=== PATIENT | female | born 1980 | race Caucasian/White ===

== ENCOUNTER 2020-06-09 10:56 | Outpatient (CLI) | payer BC ==
[2020-06-09 15:11] LABS: BASOPHILS # (AUTO) 0.1 10^3/uL (0.0-0.1); EOSINOPHILS # (AUTO) 0.1 10^3/uL (0.0-0.7); EOSINOPHILS % (AUTO) 1.8 %; HGB - HEMOGLOBIN 13.7 g/dL (12.0-16.0); LYMPHOCYTES # (AUTO) 2.7 10^3/uL (1.5-3.5); LYMPHOCYTES % (AUTO) 39.3 %; MEAN CORPUSCULAR HEMOGLOBIN 29.4 pg (27.0-31.0); MEAN CORPUSCULAR HGB CONC 31.4 g/dL (32.0-36.0); MEAN CORPUSCULAR VOLUME 93.8 fL (81.0-99.0); MEAN PLATELET VOLUME 10.7 fL (7.9-10.8); MONOCYTES # (AUTO) 0.5 10^3/uL (0.0-1.0); MONOCYTES % (AUTO) 7.4 %; NEUTROPHILS # (AUTO) 3.4 10^3/uL (1.5-6.6); NEUTROPHILS % (AUTO) 50.2 %; PLT - PLATELET COUNT 300 10^3/uL (130-450); RED BLOOD COUNT 4.66 10^6/uL (4.20-5.40); RED CELL DISTRIBUTION WIDTH 12.4 % (12.0-15.0); WHITE BLOOD COUNT 6.8 x10^3/uL (4.8-10.8)
[2020-06-09 15:26] LABS: ALBUMIN 4.1 g/dL (3.2-5.5); ALBUMIN/GLOBULIN RATIO 1.2 (1.0-2.2); BILIRUBIN,TOTAL 0.7 mg/dL (0.2-1.0); CALCIUM 9.6 mg/dL (8.5-10.3); CREATININE 0.8 mg/dL (0.4-1.0); TOTAL PROTEIN 7.4 g/dL (6.7-8.2)
== END 2020-06-09 10:57 | disposition home or self-care (01) ==
LOC: LAB.S 10:56
PROVIDERS: ATTEND Registered Nurse
DX: E03.9 Hypothyroidism, unspecified (principal)
CPT/HCPCS: 36415; 80053; 84443; 85025

== ENCOUNTER 2021-05-27 15:19 | Outpatient (CLI) | payer BC ==
--- NOTE | 2021-05-27 16:36 | Ultrasound Report ---
PROCEDURE: Pelvic w/Transvaginal INDICATIONS: IRREGULAR MENSES TECHNIQUE: Real-time scanning was performed of the pelvic organs, with image documentation. Additional endovagi nal scanning was necessary due to incomplete visualization of the adnexal and endometrial structures by transabdominal scanning. COMPARISON: None. FINDINGS: No pathologic free abdominal or pelvic fluid. Uterus: Uterus is normal in size at 8.4 x 4.8 x 5 point cm. The endometrium measures 7 mm in combin ed thickness. Multiple fibroids are seen. A right posterior subserosal fibroid measures 1.7 x 1.0 x 1.3 cm. A right posterior subserosal fibroid measures 0.8 x 0.5 x 0.6 cm. Uterine echotexture is hete rogenous consistent with adenomyosis. A left anterior subserosal fibroid measures 1.5 x 1.3 x 0.8 cm. A left anterior and lateral pedunculated fibroid measures 1.8 x 1.4 x 2.0 cm. Ovaries: The right ovary measures 3.9 x 2.4 x 3.4 cm. The left ovary measures 2.7 x 1.5 x 2.9 cm. IMPRESSION: 1. Adenomyosis and fibroid uterus 2. No acute abnormality. Reviewed by: Ethan Lynn on 05/27/2021 4:35 PM PDT Approved by: Ethan Lynn on 05/27/2021 4:35 PM PDT Station ID: [id number]
== END 2021-05-27 15:20 | disposition home or self-care (01) ==
LOC: DI 15:19
PROVIDERS: ATTEND Obstetrics & Gynecology
DX: N92.6 Irregular menstruation, unspecified (principal); N80.0 Endometriosis of uterus; D25.2 Subserosal leiomyoma of uterus

== ENCOUNTER 2021-06-09 09:33 | Outpatient (CLI) | payer BC ==
[2021-06-09 15:29] LABS: CHOL/HDL RATIO 3.6 (<4.4); CHOLESTEROL 160 mg/dL; HDL CHOLESTEROL 44 mg/dL; LDL CHOLESTEROL,CALCULATED 102 mg/dL; LDL/HDL RATIO 2.3 (<4.4); TRIGLYCERIDES 68 mg/dL; VLDL CHOLESTEROL 14 mg/dL
[2021-06-09 15:42] LABS: THYROID STIMULATING HORMONE 0.14 uIU/mL (0.34-5.60)
[2021-06-09 15:44] LABS: FREE T4 (FREE THYROXINE) 1.05 ng/dL (0.58-1.64)
[2021-06-09 15:48] LABS: PROLACTIN 8.16 ng/mL
[2021-06-09 16:09] LABS: FOLLICLE STIMULATING HORMONE 6.92 mIU/mL
[2021-06-09 19:59] LABS: ESTIMATED AVERAGE GLUCOSE 105 mg/dL (70-100); HEMOGLOBIN A1c% 5.3 % (4.27-6.07)
== END 2021-06-09 09:34 | disposition home or self-care (01) ==
LOC: LAB.S 09:33
PROVIDERS: ATTEND Obstetrics & Gynecology
DX: E03.9 Hypothyroidism, unspecified (principal); N92.6 Irregular menstruation, unspecified; Z13.220 Encounter for screening for lipoid disorders; Z13.21 Encounter for screening for nutritional disorder; Z13.1 Encounter for screening for diabetes mellitus; E28.2 Polycystic ovarian syndrome
CPT/HCPCS: 36415; 80061; 81599; 82306; 82670; 83001; 83036; 83498; 83520; 83721; 84146; 84403; 84439; 84443; 86762; 86787

== ENCOUNTER 2021-09-10 10:10 | Outpatient (CLI) | payer BC ==
[2021-09-10 19:09] LABS: BILIRUBIN,URINE NEGATIVE (NEGATIVE); GLUCOSE, URINE (UA) NEGATIVE (NEGATIVE); KETONES,URINE (UA) NEGATIVE (NEGATIVE); LEUKOCYTE ESTERASE, URINE NEGATIVE (NEGATIVE); NITRITE,URINE NEGATIVE (NEGATIVE); OCCULT BLOOD,URINE NEGATIVE (NEGATIVE); PROTEIN,URINE NEGATIVE (NEGATIVE); UROBILINOGEN,URINE 0.2 (NORMAL) E.U./dL (NORMAL)
[2021-09-10 19:23] LABS: BACTERIA,URINE Rare /HPF (None Seen); CLARITY,URINE CLEAR (CLEAR); RBC,URINE None Seen /HPF (0-5); SQUAMOUS EPITHELIAL CELL,UR RARE Squamous (<= Few)
== END 2021-09-10 23:59 | disposition home or self-care (01) ==
LOC: LAB.WC 10:10
PROVIDERS: ATTEND Obstetrics & Gynecology
DX: Z34.00 Encounter for supervision of normal first pregnancy, unspecified trimester (principal)
CPT/HCPCS: 81001; 87086

== ENCOUNTER 2021-10-04 12:57 | Outpatient (CLI) | payer BC ==
[2021-10-04 20:35] LABS: BASOPHILS # (AUTO) 0.1 10^3/uL (0.0-0.1); BASOPHILS % (AUTO) 0.6 %; EOSINOPHILS # (AUTO) 0.2 10^3/uL (0.0-0.7); EOSINOPHILS % (AUTO) 1.6 %; HCT - HEMATOCRIT 38.6 % (37.0-47.0); HGB - HEMOGLOBIN 12.8 g/dL (12.0-16.0); LYMPHOCYTES # (AUTO) 2.3 10^3/uL (1.5-3.5); LYMPHOCYTES % (AUTO) 19.9 %; MEAN CORPUSCULAR HEMOGLOBIN 30.8 pg (27.0-31.0); MEAN CORPUSCULAR HGB CONC 33.2 g/dL (32.0-36.0); MEAN PLATELET VOLUME 11.4 fL (7.9-10.8); MONOCYTES # (AUTO) 0.6 10^3/uL (0.0-1.0); MONOCYTES % (AUTO) 5.5 %; NEUTROPHILS # (AUTO) 8.3 10^3/uL (1.5-6.6); NEUTROPHILS % (AUTO) 71.9 %; PLT - PLATELET COUNT 305 10^3/uL (130-450); RED BLOOD COUNT 4.15 10^6/uL (4.20-5.40); RED CELL DISTRIBUTION WIDTH 13.3 % (12.0-15.0); WHITE BLOOD COUNT 11.5 x10^3/uL (4.8-10.8)
[2021-10-06 09:51] LABS: HEPATITIS C ANTIBODY NON-REACTIVE (NON-REACTIVE)
[2021-10-06 12:51] LABS: HEPATITIS B SURFACE ANTIGEN NON-REACTIVE (NON-REACTIVE)
[2021-10-06 15:20] LABS: HIV AG/AB 4TH GEN NON-REACTIVE (NON-REACTIVE)
== END 2021-10-04 12:58 | disposition home or self-care (01) ==
LOC: LAB.S 12:57
PROVIDERS: ATTEND Obstetrics & Gynecology
DX: Z36.89 Encounter for other specified antenatal screening (principal)
CPT/HCPCS: 36415; 85025; 86592; 86762; 86787; 86803; 86850; 86900; 86901; 87340; 87389

== ENCOUNTER 2021-10-06 08:00 | Outpatient (CLI) | payer BC ==
[2021-10-06 20:54] LABS: CHLAMYDIA TRACHOMATIS DNA NEGATIVE (NEGATIVE); NEISSERIA GONORRHOEAE DNA NEGATIVE (NEGATIVE); TRICHOMONAS VAGINALIS DNA NEGATIVE (NEGATIVE)
== END 2021-10-06 23:59 ==
LOC: LAB 08:00
PROVIDERS: ATTEND Nurse Practitioner Obstetrics & Gynecology
DX: Z11.3 Encounter for screening for infections with a predominantly sexual mode of transmission (principal)
CPT/HCPCS: 87491; 87591; 87661

== ENCOUNTER 2021-10-19 10:19 | Outpatient (CLI) | payer BC | END 2021-10-19 10:20 | disposition home or self-care (01) | LOC: LAB 10:19 | PROVIDERS: ATTEND Obstetrics & Gynecology | DX: O09.519 Supervision of elderly primigravida, unspecified trimester (principal) | CPT/HCPCS: 36415 ==

== ENCOUNTER 2021-11-03 09:18 | Outpatient (CLI) | payer BC ==
[2021-11-03 09:44] LABS: HCT - HEMATOCRIT 37.3 % (37.0-47.0); HGB - HEMOGLOBIN 12.6 g/dL (12.0-16.0); MEAN CORPUSCULAR HEMOGLOBIN 31.3 pg (27.0-31.0); MEAN CORPUSCULAR HGB CONC 33.8 g/dL (32.0-36.0); MEAN CORPUSCULAR VOLUME 92.8 fL (81.0-99.0); MEAN PLATELET VOLUME 9.9 fL (7.9-10.8); RED BLOOD COUNT 4.02 10^6/uL (4.20-5.40); RED CELL DISTRIBUTION WIDTH 13.8 % (12.0-15.0); WHITE BLOOD COUNT 11.8 x10^3/uL (4.8-10.8)
[2021-11-03 10:03] LABS: % IRON SATURATION 19 % (20-50); IRON 89 ug/dL (28-170); TOTAL IRON BINDING CAPACITY 458 ug/dL (250-450); TRANSFERRIN 327 mg/dL (192-382)
[2021-11-03 10:09] LABS: THYROID STIMULATING HORMONE 16.23 uIU/mL (0.34-5.60)
[2021-11-03 10:15] LABS: FERRITIN 41.8 ng/mL (11.0-306.8)
[2021-11-03 10:40] LABS: FREE T4 (FREE THYROXINE) 0.63 ng/dL (0.58-1.64)
== END 2021-11-03 09:19 | disposition home or self-care (01) ==
LOC: LAB 09:18
PROVIDERS: ATTEND Obstetrics & Gynecology
DX: O09.519 Supervision of elderly primigravida, unspecified trimester (principal); O99.891 Other specified diseases and conditions complicating pregnancy; R53.83 Other fatigue; O99.280 Endocrine, nutritional and metabolic diseases complicating pregnancy, unspecified trimester; E03.9 Hypothyroidism, unspecified
CPT/HCPCS: 36415; 81599; 82105; 82728; 83540; 84439; 84443; 84466; 85027

== ENCOUNTER 2021-11-19 13:35 | Outpatient (CLI) | payer BC ==
[2021-11-19 20:32] LABS: THYROID STIMULATING HORMONE 6.05 uIU/mL (0.34-5.60)
[2021-11-19 21:22] LABS: FREE T4 (FREE THYROXINE) 0.62 ng/dL (0.58-1.64)
== END 2021-11-19 13:36 | disposition home or self-care (01) ==
LOC: LAB.S 13:35
PROVIDERS: ATTEND Obstetrics & Gynecology
DX: O09.519 Supervision of elderly primigravida, unspecified trimester (principal); O99.891 Other specified diseases and conditions complicating pregnancy; R53.83 Other fatigue; O99.280 Endocrine, nutritional and metabolic diseases complicating pregnancy, unspecified trimester; E03.9 Hypothyroidism, unspecified; Z36.89 Encounter for other specified antenatal screening
CPT/HCPCS: 36415; 84439; 84443

== ENCOUNTER 2021-11-30 12:40 | Outpatient (CLI) | payer BC ==
--- NOTE | 2021-11-30 16:59 | Ultrasound Report ---
PROCEDURE: OB Detailed Eval INDICATIONS: SUPERVISION OF OUTSIDE/PRIOR DATING DATA: Last menstrual period (LMP): Unknown LMP-based estimated date of delivery (SUNDAY): Not applicable. First dating scan (date and location): 09/02/2021. Estimated date of delivery (SUNDAY) from first dating scan: 04/19/2022. TECHNIQUE: Real-time scanning was performed of the fetus, with image documentation and biometric measurements. Endovaginal scanning: No COMPARISON: None. FINDINGS: General: A single living intrauterine gestation is present. Presentation: Breech Placenta: Placental position is anterior, without previa. Amniotic fluid index: 11.1 cm heart rate: 150 beats per minute. Maternal cervical canal: 6.1 cm long; normal length is 2.5 cm or more. biometrics: Biparietal diameter: 43 mm; 19 weeks 0 days Head circumference: 166 mm; 19 weeks 2 day Abdominal circumference: 136 mm; 19 weeks 0 days Femur length: 32 mm; 19 weeks 6 days Estimated gestational age from initial scan: 20 weeks 0 days Composite gestational age from present scan: 19 weeks 2 days Estimated weight and percentile: 290 g, which is at the 16th percentile for gestational age Measurement variability in biometric dating: +/- 10 days from 12-20 weeks gestation, +/- 2 weeks from 20-30 weeks gestation, +/- 3 weeks at 30 weeks gestation or later. Anatomic survey: Neuro: Ventricles are normal at less than 10 mm. Cisterna magna is normal at 3-11 mm. Cerebellum i s normal in size and morphology. Nuchal skin fold: Normal at less than 6 mm between 14 and 20 weeks gestational age. Face: Nose and lips, facial profile are normal. Spine: No evidence for spina bifida. Heart: 4-chambered heart is present, with normal ventricular outflow tracts. Diaphragm: Diaphragm is intact. Stomach: Left-sided stomach is present. Kidneys: No hydronephrosis. Normal is less than 5 mm in 2nd trimester, less than 7 mm in 3rd trimester. Cord: 3 vessel cord has orthotopic insertion. Bladder: Normal in size. Extremities: All 4 extremities are visualized. IMPRESSION: 1. Single living intrauterine gestation. 2. Estimated weight is at the 16th percentile for gestational age. 3. No anatomic anomalies. Reviewed by: Kalpesh Szymanski MD on 11/30/2021 4:58 PM PST Approved by: Kalpesh Szymanski MD on 11/30/2021 4:58 PM PST Station ID: [id number]
== END 2021-11-30 12:41 | disposition home or self-care (01) ==
LOC: DI 12:40
PROVIDERS: ATTEND Obstetrics & Gynecology
DX: O09.512 Supervision of elderly primigravida, second trimester (principal); Z3A.19 19 weeks gestation of pregnancy; Z36.89 Encounter for other specified antenatal screening

== ENCOUNTER 2021-12-10 15:02 | Outpatient (CLI) | payer BC ==
[2021-12-10 21:11] LABS: THYROID STIMULATING HORMONE 1.44 uIU/mL (0.34-5.60)
== END 2021-12-10 15:03 | disposition home or self-care (01) ==
LOC: LAB.S 15:02
PROVIDERS: ATTEND Obstetrics & Gynecology
DX: O09.519 Supervision of elderly primigravida, unspecified trimester (principal); E03.9 Hypothyroidism, unspecified
CPT/HCPCS: 36415; 84443